=== PATIENT | male | born 1945 | race Caucasian/White ===

== ENCOUNTER → 2017-11-10 12:37 | Outpatient (CLI) | payer OTHER, SELFPAY ==
[2017-11-10 13:50] LABS: Add Manual Diff / Slide Review NO; Basophils Percent Auto 1.4 % (0-2); Eosinophils Percent Auto 3.8 % (2-4); Hematocrit 44.9 % (41-53); Lymphocytes Percent Auto 29.1 % (25-40); Mean Corpuscular HGB Conc 33.5 % (30-36); Mean Corpuscular Hemoglobin 32.4 PG (26-34); Mean Corpuscular Volume 96.6 fL (80-100); Monocytes Percent Auto 10.4 % (3-14); Neutrophils Absolute Auto 3300 /uL (3000-5900); Neutrophils Percent Auto 55.3 % (50-75); Platelet Count 291 X10^3/uL (150-400); Red Blood Cell Count 4.65 X10^6/uL (4.5-5.9); Red Cell Distribution Width 13.3 % (11.6-14.8)
[2017-11-10 14:00] LABS: Alanine Aminotransferase 38 IU/L (21-72); Albumin 4.2 g/dL (3.5-5.0); Albumin Globulin Ratio 1.3 (1.0-2.8); Alkaline Phosphatase 73 U/L (38-126); Aspartate Aminotransferase 23 IU/L (17-59); BUN Creatinine Ratio 12.5 (6-22); Bilirubin Total 0.5 mg/dL (0.2-1.3); Estimated Glomerular Filt Rate > 60.0 mL/min (>60); Globulin 3.3 g/dL (1.7-4.1); Glucose 87 mg/dL (80-110); HEMOLYSIS 22 (0-50); HEMOLYSIS < 15 (0-50); Iron 82 ug/dL (49-181); Sodium 143 mmol/L (137-145); Total Protein 7.5 g/dL (6.3-8.2)
[2017-11-10 14:11] LABS: Percent Iron Saturation 35 % (20-50); Total Iron Binding Capacity 231 ug/mL (261-462); Transferrin 167 mg/dL (206-381)
[2017-11-10 14:34] LABS: Erythrocyte Sedimentation Rate 4 MM/HR (0-15)
== END ==
PROVIDERS: PCP Family Medicine; Visit Provider Family Medicine
DX: R51 Headache (principal)
CPT/HCPCS: 36415; 80053; 83540; 83550; 85025; 85651

== ENCOUNTER → 2017-12-24 09:50 | Outpatient (CLI) | payer OTHER, SELFPAY ==
--- NOTE | 2017-12-24 09:52 | DI.MRI.S_ITS ---
PROCEDURE: MR HEAD/BRAIN WO CON INDICATIONS: MIGRAINE TECHNIQUE: Non-contrast axial T1 spin echo, axial T2 fast spin echo, sagittal and axial FLAIR, coronal T2 fast spin echo, axial gradient echo, axial diffusion and ADC through the brain. COMPARISON: None. FINDINGS: Image quality: Excellent. CSF spaces: Ventricles appear symmetric in size and shape. Basal cisterns are patent. No extra-axial fluid collections. Brain: No intracranial bleeds or mass effects. There is cerebral volume loss for age. There are periventricular and deep white matter chronic small vessel ischemic changes. Brainstem appears normal. Diffusion-weighted images show no acute ischemic insults. No chronic ischemic insults. Normal intravascular flow voids are present. Skull and face: Calvarial bone marrow is normal in signal. Orbits are normal. Sinuses: Sinuses and mastoids are clear. IMPRESSION: 1. No acute intracranial process. 2. Mild atrophy and chronic microvascular ischemic changes. Dictated by: Kristen Rodarte M.D. on 12/24/2017 at 12:17 Approved by: Kristen Rodarte M.D. on 12/24/2017 at 13:26
== END ==
PROVIDERS: Family Provider Family Medicine; PCP Family Medicine; Visit Provider Specialist
DX: G43.909 Migraine, unspecified, not intractable, without status migrainosus (principal)
CPT/HCPCS: 70551

== ENCOUNTER → 2018-01-12 14:52 | Outpatient (CLI) | payer OTHER, SELFPAY ==
--- NOTE | 2018-01-12 14:57 | DI.MRI.S_ITS ---
PROCEDURE: MR LUMBAR SPINE WO CON INDICATIONS: Chronic low back pain, bilateral hip pain status post fusion TECHNIQUE: Noncontrast sagittal T1 spin echo and T2 fast echo, sagittal STIR, axial T1 and T2 fast spin echo through the lumbar spine. In cases with scoliosis, additional coronal T2 fast spin echo may be performed. COMPARISON: [facility], , L-SPINE WITHOUT CONTRAST, 10/05/2012, 12:19. FINDINGS: Image quality: Excellent. Alignment and Curvature: Patient is status post posterior fusion and discectomy from L2-S1. No spondylolisthesis. Bone Marrow: Marrow is of normal overall signal. No acute vertebral body compression fractures. Spinal Cord: Conus medullaris terminates at the T12 level. Visualized cord demonstrates normal signal and size. Paraspinous Soft Tissues: No paravertebral masses. L1-L2: Moderate disc desiccation and height loss. Broad-based disc bulge. Mild facet ligamentum flavum hypertrophy. Mild canal stenosis. Mild bilateral neural foraminal stenosis. Degenerative disc disease is increased in extent when compared with the study dated . L2-L3: Postoperative changes. No canal stenosis. Mild bilateral foraminal narrowing. L3-L4: Postoperative changes. Moderate facet hypertrophy. No canal stenosis. Mild left foraminal narrowing. Probably moderate to severe right foraminal narrowing which is difficult to characterize given metallic artifact. L4-L5: Postoperative change. There is moderate epidural lipomatosis which narrows the bilateral lateral recesses. No AP canal stenosis. Moderate right and moderate to severe left foraminal narrowing which is difficult to characterize given metallic artifact. L5-S1: Postoperative change. Epidural lipomatosis with moderate canal stenosis. Mild right and moderate left foraminal narrowing difficult to characterize given metallic artifact. IMPRESSION: 1. Limited study given extensive metallic artifact and postsurgical change. 2. Moderate foraminal stenosis at L3-4 and L4-5, severe left foraminal narrowing at L4-5 and moderate left foraminal narrowing at L5-S1. 3. Epidural lipomatosis at L4-5 and L5-S1 with resultant narrowing of the lateral recesses L4-5 and moderate canal stenosis at L5-S1. Dictated by: Patsy Mojica M.D. on 01/12/2018 at 16:45 Approved by: Patsy Mojica M.D. on 01/12/2018 at 16:51
--- NOTE | 2018-01-12 15:12 | DI.RAD.S_ITS ---
PROCEDURE: XR LUMBAR SPINE MIN 4V INDICATIONS: Chronic low back pain status post fusion TECHNIQUE: 5 views of the lumbar spine were acquired. COMPARISON: [facility] ALFRED Blas, SPINE LUMB 2 OR 3VW, 05/06/2016, 11:02. FINDINGS: Bones: 5 nonrib-bearing vertebrae are present. Multilevel degenerative disc disease with postoperative changes L2-S1. Hardware appears intact. No acute fracture or interval change. Soft tissues: Overlying bowel gas pattern is normal. No suspicious soft tissue calcifications. Oblique images: No pars defects. IMPRESSION: Postoperative changes, no acute abnormality Dictated by: Bob Cruz M.D. on 01/12/2018 at 16:31 Approved by: Bob Cruz M.D. on 01/12/2018 at 16:35
== END ==
PROVIDERS: Family Provider Family Medicine; PCP Family Medicine; Visit Provider Physical Medicine & Rehabilitation
DX: M48.061 Spinal stenosis, lumbar region without neurogenic claudication (principal); M48.07 Spinal stenosis, lumbosacral region; M54.5 Low back pain; G89.29 Other chronic pain; M25.552 Pain in left hip; M25.551 Pain in right hip; Z98.1 Arthrodesis status
CPT/HCPCS: 72110; 72148

== ENCOUNTER 2018-02-08 13:54 | Outpatient (CLI) | payer OTHER, SELFPAY ==
--- NOTE | 2018-02-08 13:55 | DI.RAD.S_ITS ---
PROCEDURE: PAIN SI JOINT INJECTION INDICATIONS: SACROCOCCYGEAL DISORDER FINDINGS: Fluoroscopic spot filming was performed to verify placement of spinal needles at the inferior left and right sacroiliac joint level(s), as labeled on the films. Appropriate location(s) of the needle tip(s) was confirmed by injection of iodinated contrast. IMPRESSION: Successful needle tip localization into the inferior bilateral sacroiliac joints for steroid injection. Dictated by: Kiet Caraballo M.D. on 02/08/2018 at 16:23 Approved by: Kiet Caraballo M.D. on 02/08/2018 at 16:24
[2018-02-08 14:18] VITALS: BP 117/70; PULSE 95; RESP 20; TEMP 36.3; O2SAT 95
[2018-02-08 14:52] VITALS: BP 115/76; PULSE 84; RESP 18; O2SAT 97
[2018-02-08 14:58] VITALS: BP 118/57; PULSE 83; RESP 18; O2SAT 97
[2018-02-08] MEDS: BETAMETHASONE 30 MG/5 ML MDV 12 MG INJ (15:02)
[2018-02-08] MEDS: IOPAMIDOL 15 ML VIAL 3 ML INJ (15:02)
[2018-02-08] MEDS: BUPIVACAINE 0.5% (PF) VIAL 5 ML INJ (15:02)
[2018-02-08 15:05] VITALS: BP 124/73; PULSE 85; RESP 18; O2SAT 97
[2018-02-08 15:13] VITALS: BP 121/69; PULSE 86; RESP 20; O2SAT 99
--- NOTE | 2018-02-08 15:38 | P.PCN_ITS ---
Procedures Date/Time Date of procedure: 02/08/18 Time of procedure: 15:33 General Procedure description: PREOP Dx: Sacroiliac joint pain/DJD POST OP DX: Sacroiliac Joint Pain/DJD Procedures: Fluoroscopic guided contrast controlled bilateral sacroiliac joint injection Physician: Duane Mullen D.O. Indications: Augie is referred by for treatment of bilateral sacroiliac joint DJD Description of procedure Fluoroscopic guided, contrast controlled bilateral sacroiliac joint injections Following denial of allergies and review of potential side effects and complications, including, but not necessarily limited to, infection, allergic reaction, local tissue breakdown, temporary as well as permanent nerve injury, paralysis, stroke and possible , the patient indicated that they understood and agreed to proceed. An informed consent was signed by the patient , witnessed by a nurse, and placed in the patient's chart. Additionally, other treatment options including modalities, medications, and physical therapy were reviewed with the patient. After review of previous anaesthesic history and IV conscious sedation the patient was deemed safe to proceed with todays procedure with IV conscious sedation as ASA class II designation. Safety time-out was performed to confirm patient ID, procedure to be performed and site of procedure. IV sedation was deemed not needed by the RN after DO, the patient remained responsive to all verbal commands In the prone position following sterile prep and drape of the pelvic region, the hyper lucency on in the inferior aspect of the sacroiliac joint was identified fluoroscopically the skin was anesthetized be a 25 gauge 1 eventual with approximately 2 cc of 1% lidocaine solution. At this point, a 22 gauge 3 in spinal needle was atraumatically introduced and advanced under fluoroscopic guidance into the inferior aspect of the right sacroiliac joint. Following negative aspiration, approximately 0.3 cc of Isovue-300 was injected confirming intra-articular placement without vascular uptake. Radiographic data, including multiple fluoroscopic views of the pelvis, reveals a spinal needle in the sacroiliac joint hyper loosen zone. Subsequent view show flow contrast tear superiorly and inferiorly within the joint capsule without vascular intrathecal uptake. At this point a total of 1 cc or 0 8 of 0.5% Marcaine was combined with 1 cc of 6 mg of betamethasone was injected without incident. The procedure tolerated the procedure well without signs or symptoms of complications prior to transfer to the recovery area continued monitoring without incident. The patient was then transferred to the recovery area with a bur observed for an appropriate time after the injection. The patient reverted a vas score of 7 prior to the procedure and post procedure vas of 1. Total fluoroscopy time: 22.7 sec Total conscious sedation time: 24 min Postop instructions The patient was provided with a pain like to continue to record the patient's response to the target specific procedure prior to the patient's follow-up visit with the referring physician. Additionally, specific post injection care instructions and a contact number to our office were provided if concerns arise regarding the possible complications associated with procedure are suspected. Duane Mullen D.O.
== END 2018-02-08 15:22 ==
LOC: RAD 13:55
PROVIDERS: Family Provider Family Medicine; PCP Family Medicine; Visit Provider Physical Medicine & Rehabilitation
DX: M47.898 Other spondylosis, sacral and sacrococcygeal region (principal); M53.3 Sacrococcygeal disorders, not elsewhere classified
CPT/HCPCS: 27096; J0702; J2250

== ENCOUNTER → 2018-04-06 14:17 | Outpatient (CLI) | payer OTHER, SELFPAY ==
--- NOTE | 2018-04-06 14:23 | DI.MRI.S_ITS ---
PROCEDURE: MR CERVICAL SPINE WO CON INDICATIONS: Cervical spondylosis with cervicogenic headaches TECHNIQUE: Noncontrast sagittal T1 spin echo and T2 fast spin echo, sagittal STIR, foraminal oblique sagittal T2 fast spin echo, and axial gradient echo or T2 fast spin echo through the cervical spine. COMPARISON: None. FINDINGS: Image quality: Excellent. Alignment and Curvature: Trace retrolisthesis of C3 on C4 and trace anterolisthesis of C4 on C5 Bone Marrow: Marrow demonstrates normal overall signal. Spinal Cord: Visualized spinal cord has normal size and signal. No cerebellar tonsillar herniation. Paraspinous Soft Tissues: No paravertebral masses. Prevertebral soft tissues are normal in thickness. C2-C3: Normal appearance. C3-C4: Bilateral uncovertebral arthropathy and posterior intervening disc osteophyte complex, and bilateral facet disease. Mild canal narrowing partial effacement of the anterior posterior thecal sac. Mild right foraminal stenosis. [id number] left foraminal narrowing C4-C5: Bilateral uncovertebral arthropathy and posterior intervening disc osteophyte complex, and bilateral facet disease left greater than right. Mild canal narrowing with effacement of the anterior thecal sac. Severe bilateral foraminal narrowing. C5-C6: Bilateral uncovertebral arthropathy and posterior intervening disc osteophyte complex, and bilateral facet arthropathy. Mild canal narrowing. Mild left and moderate to severe right foraminal stenosis. C6-C7: Uncovertebral and bilateral facet arthropathy. Minimal canal narrowing with partial effacement of the anterior thecal sac. Moderate right foraminal narrowing. Mild left foraminal stenosis. C7-T1: No canal or foraminal stenoses. IMPRESSION: Multilevel cervical disc degeneration with mild canal narrowing at C3-C4, C4-C5 and C5-C6. Diffuse bilateral foraminal stenoses as detailed above most severe at C4-C5 (bilateral), C5-C6 (right), and C6-C7 (right). Dictated by: Aris Alfaro M.D. on 04/06/2018 at 15:37 Approved by: Aris Alfaro M.D. on 04/06/2018 at 15:45
--- NOTE | 2018-04-06 14:23 | DI.RAD.S_ITS ---
PROCEDURE: XR CERVICAL SPINE 4V OR 5V INDICATIONS: Cervical spondylosis with cervicogenic headaches TECHNIQUE: 5 views of the cervical spine acquired. COMPARISON: None. FINDINGS: Bones: No fractures or dislocations to the C7 level. Multilevel endplate sclerosis and spurring. There is moderate narrowing of the C4-C5 and C5-C6 disc spaces. Mild narrowing of the C3-C4 and 6 C7 disc spaces. Diffuse facet arthropathy. On the right, there is severe at C4-C5 and C5-C6 bony foraminal stenosis. Mild to moderate C6-C7 foraminal narrowing. On the left, no definite bony foraminal narrowing Soft tissues: No prevertebral soft tissue swelling. IMPRESSION: Multilevel cervical disc degeneration, and facet arthropathy. Numerous right-sided bony foraminal stenoses as outlined above. Dictated by: Aris Alfaro M.D. on 04/06/2018 at 16:09 Approved by: Aris Alfaro M.D. on 04/06/2018 at 16:12
== END ==
PROVIDERS: Family Provider Family Medicine; PCP Family Medicine; Visit Provider Physical Medicine & Rehabilitation
DX: R51 Headache (principal); M47.812 Spondylosis without myelopathy or radiculopathy, cervical region
CPT/HCPCS: 72050; 72141

== ENCOUNTER 2018-05-31 08:49 | Outpatient (CLI) | payer OTHER, SELFPAY ==
[2018-05-31] VITALS (8 sets, daily range): BP systolic 110–138; BP diastolic 47–95; PULSE 87–93; RESP 16–22; TEMP 36.1; O2SAT 95–99
--- NOTE | 2018-05-31 08:50 | DI.RAD.S_ITS ---
PROCEDURE: PAIN C/T INTERLAMINAR INJECT INDICATIONS: SPINAL STENOSIS FINDINGS: Fluoroscopic spot filming was performed to verify placement of spinal needles at the C6-C7 level(s), as labeled on the films. Appropriate location(s) of the needle tip(s) was confirmed by injection of iodinated contrast. Dictated by: Aris Alfaro M.D. on 05/31/2018 at 14:09 Approved by: Aris Alfaro M.D. on 05/31/2018 at 14:09
[2018-05-31] MEDS: MIDAZOLAM 5 MG/5 ML VIAL IV (09:25)
[2018-05-31] MEDS: LIDOCAINE 1% 20 ML INJ 5 ML INJ (09:48)
[2018-05-31] MEDS: DEXAMETHASONE 10 MG/ML VIAL 30 MG INJ (09:48)
[2018-05-31] MEDS: IOPAMIDOL 15 ML VIAL 3 ML INJ (09:48)
--- NOTE | 2018-05-31 09:51 | PC.NURSE ---
finished procedure and assisted pt off table with 2 person assist. pt awake and alert. transported via wheelchair for continued monitoring with Margarette DIALLO.
--- NOTE | 2018-05-31 09:54 | PM.PROC.1 ---
Procedures Date/Time Date of procedure: 05/31/18 Time of procedure: 09:54 General Procedure description: PREOP DIAGNOSIS 1. CERVICAL STENOSIS, 2. CERVICAL HNP WITH UPPER EXTREMITY RADICULAR FEATURES, POST OP DIAGNOSIS 1. CERVICAL STENOSIS, 2. CERVICAL HNP WITH UPPER EXTREMITY RADICULAR FEATURES, PROCEDURES 1. FLUORSCOPICALLY GUIDED CONTRAST CONTROLLED INTERLAMINAR EPIDURAL STEROID INJECTION - C6/7 TL MAGDA PHYSICIAN: Duane Mullen, DO INDICATIONS Augie is referred by Dr. Rios for treatment of Cervical HNP with Upper Extremity Paresthesias. FINDINGS Cervical Stenosis due to disc deterioration and nerve root irritation and nerve root irritation DESCRIPTION OF PROCEDURE Fluoroscopically guided, contrast-controlled C6/7 translaminar epidural steroid injection with conscious sedation. Following denial of allergy and review of potential side effects and complications, including, but not necessarily limited to, infection, allergic reaction, local tissue breakdown, temporary as well as permanent nerve injury, stroke, paralysis, and possible , the patient indicated that patient understood and agreed to proceed. An informed consent document was signed by the patient, witnessed by a nurse, and placed in the patient's chart. Additionally, other treatment options including modalities, medications, and physical therapy were reviewed with the patient. After review of previous anaesthesic history and IV conscious sedation the patient was deemed safe to proceed with todays procedure with IV conscious sedation as ASA class II designation. Safety time-out was performed to confirm patient ID, procedure to be performed and site of procedure. IV sedation was accomplished with a combination of 4mg of Versed administered by the RN after DO order, titrated to patient comfort during the course of the procedure while the patient remained responsive to all verbal commands. In the prone position, following sterile prep and drape of the cervical region, the C6/7 translaminar space was identified fluoroscopically. The skin was anesthetized via a 25-gauge 1.5-inch needle with 1% lidocaine solution. At this point, a 25-gauge, 2.5-inch short bevel spinal needle was atraumatically introduced and advanced under fluoroscopic guidance into epidural space at the C6/7 translaminar space. Depth was confirmed on lateral view. Radiological data, including multiple fluoroscopic views of the cervical spine, reveal a spinal needle at the C6/7 translaminar space. Lateral views then show placement of the needle in the epidural space. Subsequent views show contrast material flowing superiorly and inferiorly in the epidural space. DSA fluoroscopy with live contrast injection, once again, confirmed no vascular or intrathecal uptake. At this point, using loss of resistance technique with saline and air, the epidural space was entered. Following negative aspiration, injection of approximately 1.5 cc of Isovue-200 with live fluoroscopy in the AP view confirmed epidural flow in the epidural space without vascular or intrathecal uptake observed. Subsequently, a test dose of 1 cc of 1% lidocaine solution was injected and patient was observed for two minutes without signs or symptoms of complications, including abdominal pain, shortness of breath, bilateral upper or lower extremity weakness, nausea and vomiting, prior to steroid injection. At this point, 3 cc or 30 mg of dexamethasone was then injected without incident. The patient tolerated the procedure well without signs or symptoms of complications prior to being transferred to the recovery area for further monitoring, The patient was then transferred to the recovery area where they were observed for an appropriate period of time after the injection. The patient reported a VAS score of 6 prior to the procedure and a post-procedure VAS of 0. Total Fluoroscopy Time: 37.0 seconds Total Conscious Time: 24min POST OP INSTRUCTIONS The patient was provided a Pain Log to continue to record their response to the target-specific procedure prior to follow-up visit with the referring provider. Additionally, specific post-injection care instructions and a contact number to our office were provided if concerns arise regarding possible complications associated with the procedure are suspected. Duane Mullen, Complications: none
--- NOTE | 2018-05-31 10:06 | PC.NURSE ---
ACCEPTED PT CARE IN POST PROC AREA. PT IN STABLE CONDITION
--- NOTE | 2018-06-01 17:16 | PC.NURSE ---
Follow up call post one day injection. He reported a bad headache last night, took some immitrex and excedrin for the pain. He says that today is much better. He thought maybe it was a SE of the Versed we gave him but I explained it was probably more likely the procedure he had and he could take some of his clonazepam or some benadryl tonight to help him sleep.
== END 2018-05-31 10:32 | disposition home or self-care (01) ==
LOC: RAD 08:50
PROVIDERS: PCP Family Medicine; Visit Provider Physical Medicine & Rehabilitation
DX: M48.02 Spinal stenosis, cervical region (principal); M50.123 Cervical disc disorder at C6-C7 level with radiculopathy; M47.22 Other spondylosis with radiculopathy, cervical region
CPT/HCPCS: 62321; 99152; J1100; J2250

== ENCOUNTER → 2018-09-02 15:57 | Outpatient (CLI) | payer OTHER, SELFPAY ==
--- NOTE | 2018-09-02 | DI.MRI.S_ITS ---
PROCEDURE: MR THORACIC SPINE WO CON INDICATIONS: Radiculopthy thoracic region TECHNIQUE: Noncontrast sagittal T1 spine echo and T2 fast spin echo, sagittal STIR, axial T1 and T2 fast spin echo through the thoracic spine. COMPARISON: None. FINDINGS: Image quality: Excellent. Alignment and Curvature: There is normal bony alignment. There is approximately 12? of convex left upper thoracic spine curvature. Bone Marrow: Marrow is of normal overall signal. No acute vertebral body compression fractures. Spinal Cord: Visualized spinal cord is normal in size and signal. Paraspinous Soft Tissues: No paravertebral masses. 1.3 cm cyst noted in the posterior-inferior right hepatic lobe. Possible 1 cm nodule noted in the left lower lobe (series 10, image 28; series 5, image 13). Miscellaneous: Mild multilevel degenerative changes are noted. On axial images, central canal and foramina appear widely patent at all scanned levels. IMPRESSION: 1. Mild multilevel degenerative disease. 2. No central stenosis. 3. No neural foraminal narrowing. 4. No neural impingement. 5. Possible 1 cm right lower lobe lung nodule. Recommend dedicated CT scan of the chest for further evaluation. 6. Upper thoracic spine 12? convex left scoliosis centered at T3. Dictated by: Kaylen Belle MD, PhD on 09/05/2018 at 8:42 Approved by: Kaylen Belle MD, PhD on 09/05/2018 at 8:50
== END ==
PROVIDERS: PCP Family Medicine; Visit Provider Physical Medicine & Rehabilitation
DX: M51.14 Intervertebral disc disorders with radiculopathy, thoracic region (principal); M41.84 Other forms of scoliosis, thoracic region
CPT/HCPCS: 72146

== ENCOUNTER → 2018-09-07 16:45 | Outpatient (REF) | payer OTHER, SELFPAY | LOC: LAB 16:45 | PROVIDERS: PCP Family Medicine; Visit Provider Orthopaedic Surgery | DX: M25.562 Pain in left knee (principal) | CPT/HCPCS: 87070; 87075; 87205 ==

== ENCOUNTER → 2018-11-19 14:35 | Outpatient (CLI) | payer OTHER, SELFPAY ==
--- NOTE | 2018-11-19 | DI.MRI.S_ITS ---
PROCEDURE: MR SHOULDER LT WO CON INDICATIONS: LEFT SHOULDER DISORDER OF SYNOVIUM TECHNIQUE: Noncontrast oblique coronal T2 fast spin echo with fat saturation, oblique sagittal T1 spin echo and T2 fast spin echo with fat saturation, axial T1 spin echo and T2 fast spin echo with fat saturation through the shoulder. COMPARISON: None. FINDINGS: Image quality: Excellent. Rotator cuff: Supraspinatus tendinopathy is present. There is slitlike possible full-thickness tear at the footprint, for example image 10 series 8. There is also low-grade bursal surface fraying of the critical zone. Infraspinatus prominent interstitial tearing is noted at the musculotendinous junction for example images 13-15 series 10. Teres minor appears intact. Subscapularis tendon grossly intact. No definite atrophy of the rotator cuff musculature although there is diffuse fatty infiltration of the supraspinatus and infraspinatus muscles. Bones and bursae: No bone marrow contusions or fractures. Moderate acromioclavicular joint degeneration. The acromion demonstrates conventional anatomy, without an os acromiale. Mild amount of subacromial/subdeltoid bursal fluid is present. Capsule and soft tissues: Superior labrum appears grossly intact. Ill-defined chronic tear of the posterior labrum with associated degenerative changes in the glenoid rim image 8 series 9.No definite posterior subluxation of the humeral head relative to the glenoid. Incidental sub-labral foramen noted. The long head of the biceps tendon demonstrates normal location and morphology. The rotator interval appears normal, without fibrosis. The coracohumeral ligament is normal in thickness. IMPRESSION: Supraspinatus tendinopathy with slitlike full-thickness tear the footprint. Additional low-grade bursal surface fraying of the critical zone. Prominent infraspinatus interstitial tearing at the muscular tendinous junction. Mild subacromial/subdeltoid bursitis. Chronic tear of the posterior labrum without definite posterior subluxation of the humeral head relative to the glenoid. Dictated by: Aris Alfaro M.D. on 11/21/2018 at 9:01 Approved by: Aris Alfaro M.D. on 11/21/2018 at 9:09
== END ==
PROVIDERS: PCP Family Medicine; Visit Provider Orthopaedic Surgery
DX: M75.111 Incomplete rotator cuff tear or rupture of right shoulder, not specified as traumatic (principal); M67.912 Unspecified disorder of synovium and tendon, left shoulder; S43.492A Other sprain of left shoulder joint, initial encounter; M75.52 Bursitis of left shoulder
CPT/HCPCS: 73221

== ENCOUNTER 2019-01-06 10:26 | Emergency (ER) | payer OTHER, SELFPAY ==
[2019-01-06 10:38] VITALS: BP 168/78; PULSE 96; RESP 14; TEMP 36.7; O2SAT 97
--- NOTE | 2019-01-06 10:44 | PC.NURSE ---
CSM fully intact. Denies bowel / bladder changes. Walking w/ walker.
--- NOTE | 2019-01-06 11:43 | DI.RAD.S_ITS ---
PROCEDURE: XR SACRUM COCCYX MIN 2V INDICATIONS: pain sp glf TECHNIQUE: 3 views of the sacrum and coccyx acquired. COMPARISON: None. FINDINGS: Bones: Post-fusion changes in visualized lower lumbar spine are seen. No fractures or dislocations. No suspicious bony lesions. Soft tissues: Visualized bowel gas pattern is normal. No suspicious soft tissue densities. IMPRESSION: No gross acute sacral or coccygeal fracture. Dictated by: Ant Taylor M.D. on 01/06/2019 at 12:26 Approved by: Ant Taylor M.D. on 01/06/2019 at 12:26
--- NOTE | 2019-01-06 11:43 | DI.RAD.S_ITS ---
PROCEDURE: XR HIP W PEL IF DONE RT 2V INDICATIONS: glf pain TECHNIQUE: AP pelvis with lateral view(s) of the right hip(s). COMPARISON: None. FINDINGS: Bones: No fractures or dislocations. Pelvic ring appears intact. Mild to moderate bilateral hip joint osteoarthritic changes are noted. No evidence of avascular necrosis of femoral heads. No suspicious bony lesions. Post-fusion changes in lower lumbar spine at L4-S1 levels are seen. Soft tissues: The visualized bowel gas pattern is normal. No suspicious soft tissue calcifications. IMPRESSION: No gross acute right hip fracture or dislocation. Mild to moderate bilateral hip joint osteoarthritis. Dictated by: Ant Taylor M.D. on 01/06/2019 at 12:24 Approved by: Ant Taylor M.D. on 01/06/2019 at 12:26
[2019-01-06] MEDS: HYDROCODONE/ACET 5/325 TABLET 1 TAB PO (12:08)
[2019-01-06] MEDS: LIDOCAINE PATCH 1 EACH ADH..PATCH TOP (12:08)
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
[2019-01-06 12:27] LABS: Bacteria Urine None Seen
[2019-01-06 12:59] LABS: Culture Indicated Urine Cult Not Indicated; RBC Urine 1-5/HPF (0-5/HPF); WBC Urine 0-1/HPF (0-5/HPF)
[2019-01-06 13:14] VITALS: BP 139/79; PULSE 84; RESP 16; O2SAT 96
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
== END 2019-01-06 13:18 | disposition home or self-care (01) ==
PROVIDERS: Emergency Provider Nurse Practitioner Family; PCP Family Medicine
DX: M54.41 Lumbago with sciatica, right side (principal); W19.XXXA Unspecified fall, initial encounter
CPT/HCPCS: 72220; 73502; 81003; 81015; 99283

== ENCOUNTER → 2019-04-04 14:00 | Outpatient (CLI) | payer OTHER, SELFPAY ==
--- NOTE | 2019-04-04 14:05 | DI.CT.S_ITS ---
PROCEDURE: CT LUMBAR SPINE WO CON INDICATIONS: Postlaminectomy syndrome, not elsewhere classified TECHNIQUE: Noncontrast 3 mm thick sections acquired from the T12 level to the sacrum. Sagittal and coronal reformats were constructed. For radiation dose reduction, the following was used: automated exposure control. COMPARISON: [facility], CT, L-SPINE WITHOUT CONTRAST, 05/11/2013, 12:54. [facility], CR, XR SACRUM COCCYX MIN 2V, 01/06/2019, 11:51. [facility], CR, XR LUMBAR SPINE MIN 4V, 01/12/2018, 15:26. [facility], MR, MR LUMBAR SPINE WO CON, 01/12/2018, 15:05. FINDINGS: Image quality: Excellent. Bones: No acute vertebral body compression fractures. There is mild anterior wedge deformity seen involving L2 and L3. The L2 fracture is new compared to the prior MRI dated 01/12/18. No suspicious lytic or blastic bony lesions. Central spinal caliber is of normal overall caliber. No pars defects. Mild levoconvex scoliotic curvature is noted. Postoperative changes are seen, with right-sided pedicle screws at the L2, L3, and L4 levels and left-sided screws at the L4 and L5 and S1 levels. There is lucency seen surrounding the screws, which is most prominent at the L2 and L4 levels on the right as well as at the S1 level on the left. The left-sided screw at L4 is superiorly located. The screws otherwise appear well placed. Vertical fixation rods are seen. Disc spacers are seen at L2-L3, L3-L4, L4-L5, and the L5-S1 level. No norma findings of hardware failure can be seen. There has been removal of portions of the posterior elements. T12-L1: No significant abnormality is seen L1-L2: Mild loss of disc height is seen posteriorly. Vacuum disc phenomenon is seen at this level. Mild to moderate disc bulge is seen. Moderate bilateral neural foraminal narrowing is seen, right worse than left. Mild to moderate central canal narrowing is seen. These imaging findings have progressed compared to the prior study. L2-L3: Postoperative changes are seen at this level. Posteriorly projected endplate osteophytes are seen. At least moderate disc bulge is seen. Moderate to severe neural foraminal narrowing is seen on the left and there is at least moderate neural foraminal narrowing seen on the right. Mild central canal narrowing is seen. When comparison is made with the prior examination, these findings are similar. L3-L4: Postoperative changes are seen at this level. At least moderate disc bulge is seen. There is at least moderate bilateral neural foraminal narrowing seen. No significant central canal narrowing is seen. No significant change from the prior. L4-L5: There are postoperative changes at this level. Posteriorly projected endplate osteophytes are seen. At least moderate disc bulge is seen. At least moderate bilateral neural foraminal narrowing is seen, right worse than left. No significant central canal narrowing is seen. No significant change from the prior. L5-S1: At least moderate loss of disc height is seen. Posteriorly projected endplate osteophytes are seen. Moderate disc bulge is seen at this level. There is mild right-sided and moderate left-sided neural foraminal narrowing seen. No significant central canal narrowing is seen. When comparison is made with the prior examination, these findings are similar. Soft tissues: No retroperitoneal masses or hematomas. Visualized aorta is normal in caliber. Atherosclerotic calcification is noted. Bilateral nonobstructing kidney stones are seen. The largest on the left measures 7 mm and the largest on the right measures 6 mm. IMPRESSION: Extensive postoperative changes are seen. Several screws demonstrate lucency surrounding them, which is consistent with loosening. Multiple levels of lumbar spine degenerative change are seen, which have progressed at L1-L2 compared to the prior MRI, yet otherwise are relatively similar since 2018. Interval L2 anterior wedge deformity, without norma acute features. Incidental note is made of: Bilateral nonobstructing kidney stones Dictated by: Live Mackenzie M.D. on 04/04/2019 at 16:30 Approved by: Live Mackenzie M.D. on 04/04/2019 at 16:39
--- NOTE | 2019-07-17 | DI.CT.S_ITS ---
PROCEDURE: CT LUMBAR SPINE W CON INDICATIONS: PAIN TECHNIQUE: After the intrathecal administration of 15 mL intrathecal contrast, 3 mm thick sections acquired from T12 to the sacrum. Sagittal and coronal reformats were then constructed. For radiation dose reduction, the following was used: automated exposure control. COMPARISON: [facility], MR, MR LUMBAR SPINE WO CON, 01/12/2018, 15:05. [facility], CT, CT LUMBAR SPINE WO CON, 04/04/2019, 14:03. FINDINGS: Image quality: Excellent. Bones: Posterior fusion is present from L2-S1 with intervertebral spacers. The latter extends to L5-S1. Hardware is intact without evidence of hardware fracture or periprosthetic loosening. There is right-sided fusion at L2 and L3, bilateral at L4 and left-sided at L5 and S1. There is superior end plate deformities identified at L2 and L3, unchanged. Nonbridging anterior osteophytes are present. There is good anatomic alignment with trace retrolisthesis of L1 on L2. The conus ends at L1-2. L1-L2: Mild disc bulge with superimposed right posterior paracentral protrusion/possibly extrusion. There is overall indentation anterior thecal sac and severe spinal stenosis. This is new compared to prior exam. Moderate bilateral foraminal narrowing. L2-3: Postoperative changes are present. Mild posterior disc bulge is present with mild spinal stenosis, unchanged. There is at least moderate bilateral foraminal narrowing, likely moderate to severe on the left. Foramina are difficult to visualize secondary to artifact from surgical hardware. Facet hypertrophy is present. L3-4: Postoperative changes are present. Mild disc bulge with mild spinal stenosis, progressive compared to prior exam. Moderate bilateral foraminal narrowing, right greater than left. L4-5: Postsurgical changes are present with minimal canal narrowing, unchanged. Moderate bilateral foraminal narrowing, relatively unchanged when compared to prior exam. L5-S1: Postsurgical changes are present. Moderate spinal stenosis is present, progressive compared to prior exam. Moderate left and mild right foraminal narrowing, unchanged. Miscellaneous: Nerve roots appear unremarkable throughout. No nerve root clumping to suggest arachnoiditis. Nonobstructing bilateral renal calculi are identified. IMPRESSION: 1. Stable appearance of postsurgical change. 2. Interval appearance of protrusion/possibly extrusion at L1-2 causing severe spinal stenosis as above. As clinically indicated, MRI of this region may be obtained. There appears to be compromise of the right lateral recess. 3. Multilevel spinal stenosis increased in severity at L1-L2 and L5-S1 as above. 3. Multilevel foraminal narrowing relatively stable compared to prior exam. Dictated by: Kristen Rodarte M.D. on 07/17/2019 at 14:28 Approved by: Kristen Rodarte M.D. on 07/17/2019 at 15:08
--- NOTE | 2019-07-17 | DI.CT.S_ITS ---
PROCEDURE: CT CERVIAL SPINE W CON INDICATIONS: PAIN TECHNIQUE: After the administration of 10mL intrathecal contrast, 3 mm thick sections acquired from the skull base to the T1 level. Sagittal and coronal reformats were then constructed. For radiation dose reduction, the following was used: automated exposure control, adjustment of mA and/or kV according to patient size. COMPARISON: [facility], MR, MR CERVICAL SPINE WO CON, 04/06/2018, 14:29. [facility], CR, XR CERVICAL SPINE 4V OR 5V, 04/06/2018, 14:37. FINDINGS: Image quality: Excellent. Bones and alignment: Spinal alignment is normal. No acute fractures. No suspicious bony lesions. Soft tissues: No paraspinal masses. Prevertebral soft tissues are normal in thickness. Visualized neck vasculature appears normal in size. C2-C3: Normal appearance. C3-C4: Normal appearance except for mild posterior degenerative disc disease with a slight posterior disc bulge. C4-C5: Moderate degenerative disc disease with the posterior transverse disc bulge mild in overall severity. Moderate to moderately severe facet osteoarthritis, slightly greater on the left than the right, with moderately severe left and mild to moderate right foraminal stenosis. Asymmetric left greater than right C5 nerve root impingement likely is present. C5-C6: Moderate degenerative disc disease, mild to moderate posterior disc bulge without definite distortion of the adjacent anterior cervical cord. The mild facet osteoarthritis, mild symmetric foraminal stenosis without definite nerve root impingement. C6-C7: Mild to moderate degenerative disc disease, small posterior disc bulge, very slight anterolisthesis of C6 on C7 without significant distortion of the anterior cord at this level. Facet osteoarthritis is greater on the right than the left with mild to moderate right and mild left foraminal stenosis with potential for slight impingement on the course of the C7 nerve roots, right greater than left. C7-T1: Normal appearance. Miscellaneous: Visualized intracranial structures appear unremarkable. IMPRESSION: Mild to moderate degenerative disc disease, minimal subluxation noted at C6-C7. No disc herniation or significant anterior spinal stenosis. Multilevel facet and uncovertebral osteoarthritis as detailed by level in the body of the report above with potential for individual nerve root impingement best seen at C4-C5 (left greater than right) and at C6-C7 (right greater than left). Dictated by: Kiet Caraballo M.D. on 07/17/2019 at 11:12 Approved by: Kiet Caraballo M.D. on 07/17/2019 at 11:29
--- NOTE | 2019-07-17 09:08 | DI.CT.S_ITS ---
PROCEDURE: CT THORACIC SPINE W CON INDICATIONS: SPONDYLOSIS, RADICULPATHY TECHNIQUE: After the administration of 10 mL intrathecal contrast, 3 mm thick sections acquired through the region of interest in the thoracic spine. Sagittal and coronal reformats were then constructed. For radiation dose reduction, the following was used: automated exposure control. COMPARISON: [facility], MR, MR THORACIC SPINE WO CON, 09/02/2018, 16:31. [facility], CR, XR THORACOLUMBAR SPINE 2 VIEWS, 03/01/2019, 13:32. FINDINGS: Image quality: Excellent. No visualized fractures or dislocations. Partially visualized fusion of the lumbar spine is noted. Spinal cord stimulator is noted extending to approximately T8. Multilevel degenerative disc space narrowing is present. There is no spinal stenosis within the thoracic spine. Question will minimal disc bulge is present at T3-4. In addition, foramina are patent. No suspicious osseous lesions. Visualized soft tissues within the chest abdomen and pelvis demonstrate cardiomegaly and a prominent hiatal hernia. Nonobstructing bilateral renal calcifications are present. Severe medial hepatic cyst is noted. As noted on prior MRI thoracic spine in 2019, a possible right lower lobe pulmonary nodule was identified. However, this is not visualized on current exam. IMPRESSION: 1. No visualized thoracic spinal stenosis or foraminal narrowing. Dictated by: Kristen Rodarte M.D. on 07/17/2019 at 15:54 Approved by: Kristen Rodarte M.D. on 07/17/2019 at 16:01
== END ==
PROVIDERS: PCP Family Medicine; Visit Provider Orthopaedic Surgery
DX: M96.1 Postlaminectomy syndrome, not elsewhere classified (principal); M47.816 Spondylosis without myelopathy or radiculopathy, lumbar region; N20.0 Calculus of kidney
CPT/HCPCS: 72131

== ENCOUNTER 2019-07-17 06:55 | Outpatient (CLI) | payer OTHER, SELFPAY ==
[2019-07-17] VITALS (12 sets, daily range): BP systolic 122–154; BP diastolic 66–99; PULSE 95–109; RESP 14–103; TEMP 36.4–37.3; O2SAT 93–99; BMI 30.8
--- NOTE | 2019-07-17 | DI.RAD.S_ITS ---
PROCEDURE: FL INJECT SPINE FOR CT MYELO INDICATIONS: C.T mylogram TECHNIQUE: The indications, alternatives, benefits, risks and complications of the procedure were explained to the patient. Written informed consent was obtained and placed in the chart. The patient was placed in a prone position on the fluoroscopy table, and a level was chosen for percutaneous access under fluoroscopic guidance. The skin was prepped and draped in a sterile fashion. After local anaesthetic, a spinal needle was then used to enter the intrathecal space, with return of clear cerebrospinal fluid. 15 mL of Isovue M-200 were administered intrathecally under fluoroscopic visualization. The needle was then withdrawn, and a bandage applied to the puncture site. Fluoroscopic spot films were then acquired in various positions. FINDINGS: Standing frontal, lateral, and oblique views demonstrate no significant central canal stenoses. Access level: L2-L3 interlaminar notch. Medications: 1% lidocaine for local anaesthesia. Complications: None. Patient was transferred to CT for subsequent CT myelogram. IMPRESSION: Successful fluoroscopically guided administration of iodinated contrast into the lumbar spine central canal for CT myelogram. Dictated by: Kiet Caraballo M.D. on 07/17/2019 at 12:27 Approved by: Kiet Caraballo M.D. on 07/17/2019 at 12:33
[2019-07-17 07:40] LABS: Hematocrit 44.1 % (41-53); Mean Corpuscular Hemoglobin 32.2 PG (26-34); Mean Corpuscular Volume 94.8 fL (80-100); Platelet Count 325 X10^3/uL (150-400); Red Blood Cell Count 4.65 X10^6/uL (4.5-5.9); Red Cell Distribution Width 13.3 % (11.6-14.8); White Blood Cell Count 7.1 X10^3/uL (4.5-11.0)
[2019-07-17 07:42] LABS: Prothrombin Time 11.8 SECONDS (10.1-12.7)
--- NOTE | 2019-07-17 09:49 | SUR.PHASEII ---
Patient returned from Myelogram procedure. GCS 15. Denies any numbness or tingling. Denies blurred vision or headache. Tolerated PO fluids at this time. Warm blanket provided. Call light in reach. Reminded patient of need to lie flat for post-op procedure and to increase PO fluid intake. V/U. Instructed to call for assistance.
--- NOTE | 2019-07-17 10:06 | SUR.PHASEII ---
Patient drinking juice and eating breakfast sandwich without difficulty.
--- NOTE | 2019-07-17 11:31 | SUR.PHASEII ---
Updated patient regarding 1:00 discharge time. Patient was under the impression he would be able to leave sooner than 1300. Advised patient that orders were placed for a 1300 discharge time. V/U.
--- NOTE | 2019-07-17 13:24 | SUR.PHASEII ---
Care assumed from IMANI Richardson. D/c instructions discussed with pt and his . Both voiced an understanding. Bandaid to lower back c/d/i. VS close to baseline. Pt dressed when ready and left in stable condition.
== END 2019-07-17 13:28 | disposition home or self-care (01) ==
PROVIDERS: PCP Family Medicine; Visit Provider Physician Assistant
DX: M47.26 Other spondylosis with radiculopathy, lumbar region (principal)
CPT/HCPCS: 36415; 62284; 72126; 72129; 72132; 77003; 85027; 85610

== ENCOUNTER → 2020-04-09 09:37 | Outpatient (CLI) | payer OTHER, SELFPAY ==
--- NOTE | 2020-04-09 | DI.RAD.S_ITS ---
PROCEDURE: FL SHOULDER INJECTION MR/CT RT INDICATIONS: Rotator cuff tear COMPARISON: None. TECHNIQUE: The indications, alternatives, benefits, risks, and complications of the procedure were explained to the patient. Written informed consent was obtained and placed in the chart. The shoulder was examined fluoroscopically and a site for needle placement chosen for entry into the glenohumeral joint from an anterior approach. The skin was prepped and draped in a sterile fashion, and 1% lidocaine infiltrated from skin down to joint capsule. A spinal needle was inserted into the glenohumeral joint, and a small amount of iodinated contrast media injected to confirm intra-articular placement of the needle tip. This was followed by approximately 12 mL of iodinated contrast. The needle was removed and a dressing was applied. The patient was given postprocedural instructions and sent to the CT suite for imaging. FINDINGS: A single fluoroscopic spot image demonstrates intra-articular location of injected iodinated contrast. IMPRESSION: Successful fluoroscopically guided administration of iodinated contrast solution into the shoulder joint for CT arthrogram. Dictated by: Kiet Caraballo M.D. on 04/09/2020 at 10:53 Approved by: Kiet Caraballo M.D. on 04/09/2020 at 10:53
--- NOTE | 2020-04-09 10:41 | DI.CT.S_ITS ---
PROCEDURE: CT UE RT W CON INDICATIONS: Rotator cuff tear TECHNIQUE: After the intra-articular administration of 12 mL of dilute non-ionic contrast, 1-1.5 mm thick sections acquired from the acromioclavicular joint to the inferior scapula, with coronal and sagittal reformatting. COMPARISON: None. FINDINGS: Image quality: Excellent. Bones: Moderate acromioclavicular joint and glenohumeral joint osteoarthritic changes are seen. Slight superior migration of humeral head in relation to glenoid is noted. No fracture or dislocation. No suspicious intraosseous lesion. Postsurgical changes are noted involving greater tuberosity of humeral head from prior rotator cuff tendon repair. Soft tissues: There is no contrast extension to subacromial subdeltoid bursa to suggest full-thickness rotator cuff tendon rupture. There is likely low-grade articular surface partial-thickness tear involving anterior fibers of distal supraspinatus. No significant muscle atrophy is noted on sagittal images. There is no gross intra-articular loose body. Contrast extension and contour irregularity involving superior anterior labrum is seen concerning for labral tear. IMPRESSION: 1. No full-thickness rotator cuff tendon rupture. Suggestion of low-grade articular surface partial-thickness tear involving distal supraspinatus. No significant rotator cuff muscle atrophy. 2. Suggestion of superior anterior labral tear at 12 to 2 o'clock position. 3. Moderate acromioclavicular joint and glenohumeral joint osteoarthritis. No fracture or dislocation. No suspicious bony lesion. Evidence of prior rotator cuff tendon repair. Dictated by: Ant Taylor M.D. on 04/09/2020 at 10:33 Approved by: Ant Taylor M.D. on 04/09/2020 at 10:36
== END ==
PROVIDERS: PCP Physician Assistant Medical; Referring Provider Orthopaedic Surgery; Visit Provider Orthopaedic Surgery
DX: M75.111 Incomplete rotator cuff tear or rupture of right shoulder, not specified as traumatic; M19.011 Primary osteoarthritis, right shoulder
CPT/HCPCS: 23350; 73201; 77002

== ENCOUNTER → 2020-04-19 11:10 | Outpatient (CLI) | payer OTHER, SELFPAY ==
--- NOTE | 2020-04-19 | DI.CT.S_ITS ---
PROCEDURE: CT LUMBAR SPINE WO CON INDICATIONS: Arthrodesis status TECHNIQUE: Noncontrast 3 mm thick sections acquired from the T12 level to the sacrum. Sagittal and coronal reformats were constructed. For radiation dose reduction, the following was used: automated exposure control. COMPARISON: [facility], CT, CT LUMBAR SPINE WO CON, 04/04/2019, 14:03. FINDINGS: Image quality: Excellent. Bones: There is normal bony alignment. No acute vertebral body compression fractures. No suspicious lytic or blastic bony lesions. Central spinal caliber is of normal overall caliber. No pars defects. Posterior fixation hardware spanning L2-L5 is redemonstrated. There has been interval laminectomy, posterior fixation, and intervertebral glue placement at L1 and L2 when compared with the study dated April 04, 2019. The right 3rd pedicle screw has an unchanged appearance. As before, subtle lucency surrounds the right 4th pedicle screw. The left 4th pedicle screw has an unchanged appearance. Left this pedicle screw is unremarkable. The left S1 pedicle screw demonstrates lucency as before. Superior L2 and superior and inferior L3 endplate compression deformities are redemonstrated and are unchanged. Patient is status post discectomy from L2-S1, as before. No new compression deformities. No canal stenosis. Moderate neural foraminal stenosis is present on the right from L1-L5 and on the left from L1-L4. These findings are similar in extent to the prior study. Dense atheromatous calcifications are present throughout the visualized abdominal aorta and iliac arteries. Visualized loops of bowel demonstrate normal caliber and wall thickness. The kidneys are normal in size. A 6 mm diameter nonobstructing calculus is present within the midpole of the right kidney, as before a 6 mm nonobstructing calculus is present within the upper pole of the left kidney. No hydronephrosis or hydroureter where visualized. IMPRESSION: 1. Postoperative changes at L1-L2 when compared with the study dated April 04, 2019. 2. Persistent lucency surrounds the right 4th pedicle screw and the left S1 pedicle screw suggesting hardware loosening. 3. Stable compression deformities as before. No new compression deformities of the lumbar spine. 4. No canal stenosis. 5. Moderate bilateral foraminal stenosis as above. 6. Aortic atherosclerosis and nonobstructive bilateral nephrolithiasis. Dictated by: Patsy Mojica M.D. on 04/19/2020 at 12:43 Approved by: Patsy Mojica M.D. on 04/19/2020 at 12:51
== END ==
PROVIDERS: PCP Physician Assistant Medical; Referring Provider Physician Assistant Medical; Visit Provider Physician Assistant
DX: M48.061 Spinal stenosis, lumbar region without neurogenic claudication (principal); I70.0 Atherosclerosis of aorta; N20.0 Calculus of kidney; Z98.1 Arthrodesis status
CPT/HCPCS: 72131

== ENCOUNTER → 2020-09-18 11:35 | Outpatient (CLI) | payer OTHER, SELFPAY ==
--- NOTE | 2020-09-18 11:41 | DI.CT.S_ITS ---
PROCEDURE: CT LUMBAR SPINE WO CON INDICATIONS: UNSPECIFIED FRACTURE OF LUMBAR VERTABREA TECHNIQUE: Noncontrast 3 mm thick sections acquired from the T12 level to the sacrum. Sagittal and coronal reformats were constructed. For radiation dose reduction, the following was used: automated exposure control. COMPARISON: [facility], CT, CT LUMBAR SPINE WITHOUT CONTRAST, 01/25/2020, 15:49. [facility], CR, XR LUMBAR SPINE 2 OR 3 VIEWS, 01/28/2020, 8:15. [facility], CR, XR LUMBAR SPINE 2 OR 3 VIEWS, 03/05/2020, 10:27. [facility], CT, CT LUMBAR SPINE WO CON, 04/19/2020, 12:11. FINDINGS: Image quality: Excellent. Bones: No acute vertebral body compression fractures. No suspicious lytic or blastic bony lesions. No pars defects. Postoperative changes are seen, with bilateral pedicle screws at the L1, L2, and L4 levels. There is a right-sided screw at L3. Left-sided screws are seen at L5 and S1. The screws appear well placed. There is lucency seen adjacent to the right L4 screw, as on series 6, image 26 and on series 5 image 21. Vertical fixation rods are seen. Disc spacers are seen at L2-L3, L3-L4, L4-L5, and at L5-S1. No additional findings of hardware failure or hardware loosening are seen. There has been removal of portions of the posterior elements. Bone grafting can be seen within the L1 and L2 vertebral bodies. Mild levoconvex scoliotic curvature is noted. No focal AP alignment abnormality is seen. 5 nonrib-bearing, lumbar type vertebral bodies are seen. No acute appearing fractures are seen. No suspicious lytic or blastic lesions can be seen. T12-L1: The disc height is well preserved. Minimal disc bulge is seen. No neural foraminal narrowing or central canal can be seen. L1-L2: Moderate loss of disc height is seen posteriorly. Bone cement can be seen along the disc level itself. Vacuum disc phenomenon is seen at this level. There is moderate bilateral neural foraminal narrowing seen, right worse than left. The central canal is widely patent. L2-L3: At least moderate loss of disc height is seen posteriorly. Endplate irregularity and sclerosis can be seen. At least moderate disc bulge is seen. Posteriorly projected endplate osteophytes are seen. Moderate facet joint hypertrophy is seen. Moderate bilateral neural foraminal narrowing is seen. Mild central canal narrowing is seen. L3-L4: Zvyj-tl-sijyakvw loss of disc height can be seen. At least moderate disc bulge is seen, with a central disc protrusion. Posteriorly directed endplate osteophytes are also seen. There is moderate left-sided and moderate to severe right-sided neural foraminal narrowing seen. Moderate central canal narrowing is seen. L4-L5: Moderate to severe loss of disc height is seen at this level. Endplate irregularity and sclerosis can be seen. Vacuum disc phenomenon is seen at this level. Moderate to severe bilateral neural foraminal narrowing can be seen. At least moderate central canal narrowing can be seen at this level, which is partially caused by bone fragments versus calcification along the left aspect of the thecal sac, as on series 2, image 69 and on series 3, image 69. L5-S1: At least moderate loss of disc height is seen. Macrovascular mild to moderate disc bulge is seen. There is moderate right-sided and prominent left-sided facet hypertrophy seen. There is moderate right-sided and moderate to severe left-sided neural foraminal narrowing seen. Mild to moderate central canal narrowing can be seen. Soft tissues: No retroperitoneal masses or hematomas. Visualized aorta is normal in caliber. Atherosclerotic calcification is noted. Nonobstructing bilateral renal stones are seen, which measure up to 6 mm on the right and up to 8 mm on the left. No ureteral stones or hydronephrosis can be seen. A left-sided stimulator power pack can be seen, with the leads coursing superiorly off of the field of view of this study. IMPRESSION: Extensive postoperative hardware is seen, which is similar to prior, with lucency noted adjacent to the right L4 screw, which is consistent with loosening. Multiple levels of degenerative change are seen, which are similar to 2020. Dictated by: Live Mackenzie M.D. on 09/18/2020 at 14:07 Approved by: Live Mackenzie M.D. on 09/18/2020 at 14:16
== END ==
PROVIDERS: PCP Physician Assistant Medical; Referring Provider Physician Assistant Medical; Visit Provider Physician Assistant
DX: S32.029A Unspecified fracture of second lumbar vertebra, initial encounter for closed fracture (principal); M47.816 Spondylosis without myelopathy or radiculopathy, lumbar region; M47.817 Spondylosis without myelopathy or radiculopathy, lumbosacral region; Z98.1 Arthrodesis status
CPT/HCPCS: 72131

== ENCOUNTER → 2020-10-15 10:53 | Outpatient (CLI) | payer OTHER, SELFPAY ==
--- NOTE | 2020-10-15 | DI.RAD.S_ITS ---
PROCEDURE: XR FOOT RT MIN 3V INDICATIONS: Pain in right toe(s) TECHNIQUE: 3 views of the foot were acquired. COMPARISON: None. FINDINGS: Bones: No fractures or dislocations. Quality of visualization of the toes is relatively limited by flexion at the proximal interphalangeal joints along all digits. No suspicious bony lesions. Soft tissues: No tibiotalar joint effusion. Achilles tendon appears normal. IMPRESSION: Flexion deformity noted along the proximal interphalangeal joints across the right foot. This disallows accurate assessment of the distal phalanx of each toe. Depending on the clinical status, if infection is suspected follow-up by contrast-enhanced foot MR scanning may be warranted. Dictated by: Kiet Caraballo M.D. on 10/15/2020 at 12:34 Approved by: Kiet Caraballo M.D. on 10/15/2020 at 12:36
== END ==
PROVIDERS: PCP Physician Assistant Medical; Referring Provider Physician Assistant; Visit Provider Physician Assistant
DX: M79.674 Pain in right toe(s) (principal); M25.774 Osteophyte, right foot
CPT/HCPCS: 73630

== ENCOUNTER → 2021-01-02 13:08 | Outpatient (CLI) | payer OTHER, SELFPAY ==
--- NOTE | 2021-01-02 | DI.CT.S_ITS ---
PROCEDURE: CT LE RT WO CON INDICATIONS: Pain in right foot TECHNIQUE: Noncontrast 1-1.5 mm axial sections acquired from above the tibiotalar joint to the bottom of the calcaneus, with coronal and sagittal reformats. COMPARISON: [facility], CR, XR FOOT 3 VIEWS WEIGHT BEARING RIGHT, 12/18/2020, 10:08. [facility], CR, XR ANKLE 1 OR 2 VIEWS BILATERAL, 12/18/2020, 10:13. FINDINGS: Image quality: Excellent. Bones: No acute fracture or dislocation. A small ossification adjacent to the anterior process of the calcaneus may be the sequela of prior trauma or congenital variation. No hindfoot coalition is seen. Accessory os naviculare is present. A small posterior calcaneal enthesophyte is present. There is flexion of the toes, which is nonspecific. Mild degenerative changes are seen at the 1st metatarsophalangeal joint and metatarsal sesamoid articulations as well as the interphalangeal joints of the toes. Soft tissues: The intrinsic foot musculature is normal in bulk. There is mild soft tissue edema surrounding the ankle. The articular cartilages, ligaments, and tendons are not well evaluated with CT. IMPRESSION: 1. No acute osseous abnormality. No hindfoot coalition. 2. Flexion of the interphalangeal joints of the toes, which is nonspecific but may be related to positioning or hammertoe deformities. Mild scattered degenerative changes in the interphalangeal joints of the toes in the 1st metatarsophalangeal joint. 3. Mild nonspecific soft tissue edema surrounding the ankle. Dictated by: Winston Chen M.D. on 01/02/2021 at 17:12 Approved by: Winston Chen M.D. on 01/02/2021 at 17:18
== END ==
PROVIDERS: PCP Physician Assistant Medical; Referring Provider Orthopaedic Surgery Foot and Ankle Surgery; Visit Provider Orthopaedic Surgery Foot and Ankle Surgery
DX: M79.671 Pain in right foot (principal); M25.471 Effusion, right ankle
CPT/HCPCS: 73700

== ENCOUNTER → 2021-01-22 12:14 | Outpatient (CLI) | payer OTHER, SELFPAY ==
--- NOTE | 2021-01-22 12:18 | DI.CT.S_ITS ---
PROCEDURE: CT PEL WO CON INDICATIONS: Age-related osteoporosis Sacroiliitis TECHNIQUE: Noncontrast 3 mm axial sections acquired through the bony pelvis, with coronal and sagittal reformatting. COMPARISON: [facility], CR, XR HIP W PEL IF DONE LOKESH 3TO4V, 01/22/2021, 12:22. [facility], CT, CT LE RT WO CON, 01/02/2021, 13:16. [facility], CT, CT LUMBAR SPINE WO CON, 09/18/2020, 11:39. [facility], CT, CT LUMBAR SPINE WO CON, 04/19/2020, 12:11. [facility], CR, XR LUMBAR SPINE 2 OR 3 VIEWS, 01/25/2020, 10:48. [facility], RF, LUMBAR SPINE INTERIAMINAR, 11/27/2019, 9:32. FINDINGS: Image quality: Excellent. Bones: The imaging begins to include the upper L4 vertebral body and extends inferiorly through the proximal femurs. There is partial visualization of prior fixation devices documented on previous CT and plain film imaging. No evidence of device loosening or disruption. A presumed pain control device overlies the buttocks region paramedian on the left. This had obscured clear visualization of the left hip on plain film imaging same day. The hip joints on CT scanning are well visualized in show a mild joint space narrowing pattern symmetric bilaterally as has previously the case before pain control device placement. There is no sign of sacroiliitis/ankylosis over the sacroiliac joints bilaterally. Minimal degenerative changes seen at the inferior sacroiliac joints. This has not changed from prior CT scanning. Soft tissues: No abnormality found that would indicate hematoma, infection or neoplasm. 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 New pain control device overlies the left paramedian buttock area. No sign of soft tissue abnormality Dictated by: Kiet Caraballo M.D. on 01/22/2021 at 13:00 Approved by: Kiet Caraballo M.D. on 01/22/2021 at 13:03
--- NOTE | 2021-01-22 12:19 | DI.RAD.S_ITS ---
PROCEDURE: XR HIP W PEL IF DONE LOKESH MIN 4V INDICATIONS: Sacroiliitis TECHNIQUE: AP pelvis with lateral view(s) of the bilateral hip(s). COMPARISON: [facility], , XR HIP W PEL IF DONE RT 2V, 01/06/2019, 11:49. FINDINGS: Bones: No fractures or dislocations. Pelvic ring appears intact. No suspicious bony lesions. Mild hip joint osteoarthritis is present and on the right, and the left hip on both frontal and lateral views is obscured by a presumed pain control electronic device. Soft tissues: The visualized bowel gas pattern is normal. No suspicious soft tissue calcifications. IMPRESSION: Mild right hip joint space narrowing, present also 01/06/19. Left hip assessment is very limited due to overlapping of a pain control device across much of the articular margin of the left hip. No definite trauma found bilaterally. Dictated by: Kiet Caraballo M.D. on 01/22/2021 at 12:54 Approved by: Kiet Caraballo M.D. on 01/22/2021 at 12:55
== END ==
PROVIDERS: PCP Physician Assistant Medical; Referring Provider Neurological Surgery; Visit Provider Neurological Surgery
DX: Z13.820 Encounter for screening for osteoporosis (principal); M85.851 Other specified disorders of bone density and structure, right thigh; M46.1 Sacroiliitis, not elsewhere classified; M16.0 Bilateral primary osteoarthritis of hip
CPT/HCPCS: 72192; 73522; 77080; 77081

== ENCOUNTER → 2021-09-26 11:23 | Outpatient (CLI) | payer OTHER, SELFPAY ==
[2021-09-26 12:26] LABS: COVID19 -Nasal RAPID Negative (Negative)
== END ==
PROVIDERS: PCP Physician Assistant Medical; Visit Provider Family Medicine Sleep Medicine
DX: Z20.822 Contact with and (suspected) exposure to COVID-19 (principal)
CPT/HCPCS: 87635; C9803

== ENCOUNTER 2021-09-29 08:24 | Day surgery (SDC) | payer OTHER, SELFPAY ==
--- NOTE | 2021-09-29 | PATH_ITS ---
[facility] Accession Number: [id number] No. of containers..01 Tissue . 01 Material submitted: . gastrointestinal site - ANTRUM . 02 Diagnosis: Antrum, Biopsy: Gastric antral mucosa with no diagnostic abnormality. No evidence of Helicobacter organisms on H/E stain. Negative for intestinal metaplasia. Negative for dysplasia and malignancy. MRV 09/30/2021 1359 Local . 02 Electronically signed: . Jozef Mendoza MD, PhD, Pathologist NPI- [id number] . 01 Gross description: . ANTRUM: Received in formalin is 1 fragment(s) of baez, soft tissue measuring 0.2 x 0.1 x 0.1 cm submitted entirely in 1 cassette(s) /DOTTIE 09/30/2021 0150 Local . 02 Pathologist provided ICD-10: K21.9 . 02 CPT . 853255 Specimen Comment: A courtesy copy of this report has been sent to [phone] Performed at: 01 [facility] [address] [facility], [place], [place] [id number] MD Jon Carter MD Phone: [phone] Performed at: 02 [facility] [address] [place], [place] [id number] MD Bita Catherine MD Phone: [phone]
[2021-09-29 08:45] VITALS: BP 121/74; PULSE 87; RESP 16; TEMP 36.5; O2SAT 95; BMI 28.0
[2021-09-29] MEDS: SODIUM CHLORIDE 0.9% 1,000 ML 84 ML IV (09:00)
--- NOTE | 2021-09-29 09:15 | PM.HP.1 ---
History of Present Illness History of Present Illness Date Patient Seen: 09/29/21 Time Patient Seen: 09:15 Chief complaint: SDC Narrative: I reviewed my office note from August 26, 2021. No significant changes. He is tolerating Nexium. Patient History Medical History Hypertension Iron overload Migraine Family & Social History Social History: household members spouse Tobacco & Substance use: Smoking Status Never smoker alcohol intake never alcohol intake frequency 0-2 drinks per day Substance Use Type does not use Meds Home Medications and Allergies Home Medications Medication Instructions Recorded Confirmed Type cholecalciferol (vitamin D3) 50 2,000 iu PO DIRECTED #0 09/01/11 09/29/21 History mcg (2,000 unit) capsule (Vitamin D3) atorvastatin 20 mg tablet (Lipitor) 20 mg PO BEDTIME #0 tab 02/24/13 09/29/21 History clonazepam 0.5 mg tablet 0.5 mg PO BEDTIME PRN #0 tab 02/24/13 09/29/21 History sumatriptan succinate 100 mg 100 mg PO PRN PRN #0 02/24/13 09/29/21 History tablet (Imitrex) verapamil 80 mg tablet 80 mg PO BID #0 02/24/13 09/29/21 History acetaminophen-caffeine 500 mg-65 1 tab PO Q6H PRN 11/10/17 09/29/21 History mg tablet magnesium oxide 400 mg PO DAILY 01/06/19 09/29/21 History tamsulosin 0.4 mg capsule (Flomax) 0.4 mg PO BID 01/06/19 09/29/21 History sennosides 8.6 mg capsule (senna) 25.8 mg PO TID 07/17/19 09/29/21 History Allergies Allergy/AdvReac Type Severity Reaction Status Date / Time adhesive tape Allergy Intermediate Rash Verified 09/29/21 08:35 clindamycin Allergy Mild Hives Verified 09/29/21 08:35 ampicillin [AMPICILLIN] AdvReac Mild DIARRHEA Verified 09/29/21 08:35 chocolate flavor AdvReac Mild TRIGGER Verified 09/29/21 08:35 [CHOCOLATE FLAVOR] MIGRAINES HIGH OXALATE FOODS AdvReac Mild R/T KIDNEY Uncoded 09/29/21 08:35 STONES Review of Systems Review of Systems ROS: Yes All systems reviewed with the patient and are negative except as otherwise documented Exam Vital Signs (past 8 hours): - 09/29/21 08:45 Temperature 97.7 F Pulse Rate 87 Respiratory Rate 16 Blood Pressure 121/74 Pulse Oximetry 95 Oxygen Delivery Method Room Air Const General: cooperative and comfortable Orientation: alert HENMT Head: normocephalic Ears: external ears normal Nose: external nose normal Face and sinus: normal facial exam Mouth: oral mucosae normal Eyes General: appearance normal, both eyes and all related structures Neck Neck: normal visual inspection Chest Chest: normal inspection of the chest Resp Effort & Inspection: normal respiratory effort Cardio Rate: regular rate GI Inspection: normal to inspection Skin General: no rashes or lesions noted and No jaundice Neuro General: patient alert and moves all extremities Cognition: normal cognition Speech: speech normal Extrem General: no pedal edema Psych Appearance: grossly normal Assessment & Plan Assessment & Plan narrative: 75-year-old male with refractory gastroesophageal reflux symptoms. He has had some chest discomfort and dysphagia to both liquids and solids. EGD is pursued today. Time Spent With Patient Critical Care time: I spent a total of [] minutes of critical care time on this patient's care today; this time is exclusive of procedural time.
--- NOTE | 2021-09-29 09:17 | PM.PREOP ---
Pre-operative Note COVID-19 COVID-19 status: Negative Result date/Date tested (Pos, Neg/Pending): 09/26/21 Criteria for continued procedure: Possibility delay results in more complex future surgery or treatment Interval Note History & Physical reviewed/Exam performed by Physician: Yes Changes to H&P: Yes ASA Class (for procedural sedation): II
--- NOTE | 2021-09-29 09:30 | P.OP.EGD_ITS ---
Operative Date/Time/Diagnoses Date of procedure: 09/29/21 Time of procedure: 09:31 Pre-op diagnosis: Refractory GERD dysphagia to liquids and solids Post-op diagnosis: same Procedure & Clinicians Study performed: EGD with biopsies Same procedure as scheduled: Yes Indications: Refractory GERD dysphagia to liquids and solids Surgeon: Gaetano Rosenbaum Procedure Notes SCOAP/Timeout: Done Procedure in detail: After the risks and benefits were explained, written and verbal informed consent was obtained. The patient was brought into the procedure room and placed into the left lateral decubitus position. Please see nurse medical device sales representative notes for sedation details. The scope was introduced into the mouth through the bite block and advanced under direct visualization to the 2nd portion of the duodenum. The scope was slowly withdrawn carefully examining the mucosa for any defects or lesions. Retroflexed views were accomplished in the stomach. The stomach was decompressed, the scope was then removed from the patient who tolerated the procedure well. Sedation minutes: 11 Complications: none Impression: 1. Duodenum: This was normal from the bulb through to the 2nd portion. 2. Stomach: No ulcers no outlet obstruction. No mass lesions. Minimal gastropathy. Random antral biopsies were taken for exclusion of H pylori or other pathology. Retroflexed views of the LES demonstrated a slightly lax lower esophageal sphincter mechanism. There was some retained food debris noted in the proximal body and fundus region. 3. Esophagus: The squamocolumnar junction correlated with the top of the gastric folds. The GEJ was at about 41 cm from the incisors. There was some evidence of healing LA grade A erosive esophagitis. The remainder of the esophagus was unremarkable. Endoscopic diagnosis 1. Minimal gastropathy 2. Retained gastric food debris 3. Healing erosive esophagitis Post-procedure Plan for aftercare: 1. Await histopathology 2. Fiber based bowel regimen for soft regular stools. 3. Continue Nexium. 4. Should there be any persisting symptoms, gastric emptying study may be indicated to evaluate for underlying gastroparesis 5. Follow up GI clinic in 6-8 weeks Disposition: PACU
[2021-09-29 09:34] VITALS: BP 120/58; PULSE 73; RESP 14; TEMP 36.6; O2SAT 97
[2021-09-29 09:39] VITALS: BP 117/72; PULSE 70; RESP 11; O2SAT 97
[2021-09-29 09:44] VITALS: BP 113/72; PULSE 70; RESP 15; O2SAT 97
[2021-09-29 09:49] VITALS: BP 114/72; PULSE 72; RESP 14; O2SAT 98
[2021-09-29 09:56] VITALS: BP 113/72; PULSE 70; RESP 18; TEMP 37; O2SAT 96
== END 2021-09-29 10:10 | disposition home or self-care (01) ==
PROVIDERS: PCP Internal Medicine; Referring Provider Internal Medicine Gastroenterology; Visit Provider Internal Medicine Gastroenterology
PROC: 0DJ08ZZ Inspection of Upper Intestinal Tract, Via Natural or Artificial Opening Endoscopic (ICD-10-PCS; CPT 43235; principal; 2021-09-29 09:30)
DX: K21.00 Gastro-esophageal reflux disease with esophagitis, without bleeding (principal); K31.9 Disease of stomach and duodenum, unspecified
CPT/HCPCS: 43239; J2704

== ENCOUNTER → 2021-11-22 09:44 | Outpatient (CLI) | payer OTHER, SELFPAY ==
--- NOTE | 2021-11-22 09:49 | DI.RAD.S_ITS ---
PROCEDURE: XR SACRUM COCCYX MIN 2V INDICATIONS: Sacroiliitis TECHNIQUE: 3 views of the sacrum and coccyx acquired. COMPARISON: [facility], CR, XR SACRUM COCCYX MIN 2V, 01/06/2019, 11:51. FINDINGS: Bones: No fractures or dislocations. No suspicious bony lesions. There is postsurgical changes of the left sacroiliac joint with 3 traversing metallic structures. There is no significant sacroiliac joint sclerosis or erosions. No evidence of hardware complication. Neurostimulator is noted overlying the posterior aspect of the lower sacrum/upper coccyx. Postsurgical changes of prior lumbar fusion is grossly unchanged. Mild degenerative changes of the hips. Soft tissues: Visualized bowel gas pattern is normal. No suspicious soft tissue densities. IMPRESSION: Postsurgical changes as above without evidence of hardware complication or radiographic findings to suggest sacroiliitis. Dictated by: Manpreet Sparrow D.O. on 11/22/2021 at 9:30 Approved by: Manpreet Sparrow D.O. on 11/22/2021 at 9:33
== END ==
PROVIDERS: PCP Internal Medicine; Referring Provider Neurological Surgery; Visit Provider Neurological Surgery
DX: M46.1 Sacroiliitis, not elsewhere classified (principal)
CPT/HCPCS: 72220

== ENCOUNTER → 2021-12-16 10:33 | Outpatient (CLI) | payer OTHER, SELFPAY ==
[2021-12-16 11:12] LABS: COVID19 -Nasal RAPID Negative (Negative)
== END ==
PROVIDERS: PCP Internal Medicine; Referring Provider Orthopaedic Surgery Orthopaedic Surgery of the Spine; Visit Provider Orthopaedic Surgery Orthopaedic Surgery of the Spine
DX: Z20.822 Contact with and (suspected) exposure to COVID-19 (principal)
CPT/HCPCS: 87635; C9803

== ENCOUNTER 2021-12-17 06:16 | Day surgery (SDC) | payer OTHER, SELFPAY ==
[2021-12-10 08:34] VITALS: BMI 28.4
[2021-12-17] VITALS (17 sets, daily range): BP systolic 71–115; BP diastolic 31–73; PULSE 72–92; RESP 14–20; TEMP 35.8–36.5; O2SAT 10–98; BMI 28.4
--- NOTE | 2021-12-17 | DI.RAD.S_ITS ---
PROCEDURE: XR THORACIC SPINE 1V INDICATIONS: SPINAL CORD STIMULATOR REMOVAL TECHNIQUE: One-view of the thoracic spine were acquired. COMPARISON: None. FINDINGS: Bones: No fractures or dislocations. No suspicious bony lesions. Soft tissues: No paravertebral stripe thickening. No retained neurostimulator lead elements. IMPRESSION: No retained neurostimulator lead identified by plain film radiograph. Dictated by: Kaylen Belle MD, PhD on 12/17/2021 at 12:06 Approved by: Kaylen Belle MD, PhD on 12/17/2021 at 12:06
[2021-12-17] MEDS: ACETAMINOPHEN 325 MG TABLET 975 MG PO (07:22)
[2021-12-17] MEDS: LACTATED RINGERS 1,000 ML 42 ML IV ×2 (07:24→09:03)
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
[2021-12-17] MEDS: CEFAZOLIN 2 GM/20 ML SYRINGE IV (08:19)
--- NOTE | 2021-12-17 08:27 | SUR.OPER ---
Prone on spine table, head in foam head support, padded chest and pelvic supports, gel pad at knees, lower legs supported by pillows; nipples, genitalia and toes free of pressure, arms secured on foam padded arm boards at <90 degrees abduction. Tape over blanket at thigh secured to table.
[2021-12-17] MEDS: BUPIVACAINE 0.25% (PF) 60 ML, EPINEPHrine 0.3 MG INJ (09:00)
--- NOTE | 2021-12-17 09:10 | PM.OP.1 ---
Operative Date/Time/Diagnoses Date of procedure: 12/17/21 Time of procedure: 07:45 Pre-op diagnosis: 1. Failed spinal cord stimulator 2. Chronic back pain Post-op diagnosis: same Procedure & Clinicians Procedure: 1. Removal of spinal neurostimulator electrode paddle placed via laminectomy at T7 level using fluoroscopy 2. Removal of implanted spinal neurostimulator pulse generator Same procedure as scheduled: Yes Indications: Mr. Gomez is here for scheduled spinal cord stimulator removal. He had SCS implantation in 2019. He has worsening pain with no relief. After discussing risks and benefits of surgery, patient elected to proceed with SCS removal along with paddle leads. Surgeon: Corrie Goodwin Analog Device Designer: Lois Michele Click Yes if Unassisted: No Anesthesia Type: General Operative Notes Closure Type: primary Specimen(s): none sent Estimated Blood Loss (mL): 5 Blood products transfused: none Procedure in detail: Patient was seen in the preoperative area. Risks and benefits of the surgery was discussed with the patient. Informed consent was obtained from the patient and placed in the chart. Surgical site was marked. Patient was taken to the operative room. General anesthesia was administered. Prophylactic antibiotic was given to the patient less than 30 min before the incision was made. Patient was placed into a prone position on the Cheikh table. Patient's back was then prepped and draped in the sterile fashion. Time-out was performed at this time. Incision was first made over his left glute over his pulse generator. Bovie was used to dissect down to the device. The device was removed from the wound along with the lead attached and set aside. Second incision was made over his thoracic region over T7 level. A T7 laminectomy was performed to expose the paddle lead using curette and rongeur. The wire along with the paddle lead was removed from the wound. The wire was cut caudal to the paddle lead. The remaining wire was removed by pulling on the pulse generator. C-arm imaging was done over the thoracic region to confirm no other implant was remaining. This was confirmed to be the case. The wound was then irrigated with sterile normal saline. The deep fascia was closed with 1-0 Vicryl. The subcutaneous tissue was closed with 2-0 Vicryl. The skin was closed with skin mirlande. Patient tolerated the procedure well. There were no complications. Patient was transferred to recovery room in stable condition. Complications: none Post-operative Condition: stable Disposition: PACU Plan for aftercare: Discharge to home
--- NOTE | 2021-12-17 09:50 | SUR.PHASEI ---
Verbal order from Dr Landin entered with Dr Landin at bedside for MAP less than 60
[2021-12-17] MEDS: PHENYLEPHRINE 10,000 MCG/ML VIAL 100 MCG IV ×2 (09:51→09:54)
[2021-12-17] MEDS: OXYCODONE IR 5 MG TABLET PO ×2 (10:20→11:33)
[2021-12-17] MEDS: LACTATED RINGERS 1,000 ML 120 ML IV (10:34)
--- NOTE | 2021-12-17 11:48 | SUR.PHASEII ---
1143 Patient medicated per request for pain, states that he has multiple strengths of medication that he uses at home for his chronic pain. Declined hydroxyzine PO. Patient calm, joking, transferred slowly, but independently. No questions/concerns
== END 2021-12-17 11:43 | disposition home or self-care (01) ==
PROVIDERS: PCP Internal Medicine; Referring Provider Orthopaedic Surgery Orthopaedic Surgery of the Spine; Visit Provider Orthopaedic Surgery Orthopaedic Surgery of the Spine
PROC: (CPT 63685; principal; 2021-12-17 07:45)
DX: T85.192A Other mechanical complication of implanted electronic neurostimulator of spinal cord electrode (lead), initial encounter (principal)
CPT/HCPCS: 63662; 63688; 72020; 76000; J0171; J0330; J0690; J1100; J2250; J2405; J2704; J3010

== ENCOUNTER → 2022-01-24 10:33 | Outpatient (CLI) | payer OTHER, SELFPAY ==
--- NOTE | 2022-01-24 10:39 | DI.RAD.S_ITS ---
PROCEDURE: XR CERVICAL SPINE 2V OR 3V INDICATIONS: Cervicalgia TECHNIQUE: Lateral views of the cervical spine were performed in neutral, flexion, and extended position. COMPARISON: [facility], , XR CERVICAL SPINE 4V OR 5V, 04/06/2018, 14:37. FINDINGS: Bones: No fractures or dislocations to the C7 level. Vertebral body heights are maintained. There is complete intervertebral disc space loss noted C4-C5 and C5-C6 with additional levels of at least mild intervertebral disc space loss. There is mild anterolisthesis of C4 on C5 and C5 on C6 without significant change with flexion or extension. Postsurgical changes of the mandible and teeth. Soft tissues: No prevertebral soft tissue swelling. IMPRESSION: Multilevel cervical spondylopathy worse at C4-C5 and C5-C6 where there is complete intervertebral disc space loss and mild anterolisthesis which does not demonstrate significant changes on flexion or extension. Dictated by: Manpreet Sparrow D.O. on 01/24/2022 at 15:16 Approved by: Manpreet Sparrow D.O. on 01/24/2022 at 15:18
== END ==
PROVIDERS: PCP Internal Medicine; Referring Provider Psychiatry & Neurology Neurology; Visit Provider Psychiatry & Neurology Neurology
DX: M48.8X2 Other specified spondylopathies, cervical region (principal); M54.2 Cervicalgia; M54.81 Occipital neuralgia; M79.18 Myalgia, other site
CPT/HCPCS: 72040

== ENCOUNTER → 2022-03-17 12:16 | Outpatient (CLI) | payer OTHER, SELFPAY ==
--- NOTE | 2022-03-17 12:19 | DI.RAD.S_ITS ---
PROCEDURE: XR PELVIS 1-2V INDICATIONS: Other spondylosis with radiculopathy, lumbar TECHNIQUE: Single AP view of the pelvis acquired. COMPARISON: [facility], CT, CT PEL WO CON, 01/22/2021, 12:36. [facility], CR, XR SACRUM COCCYX MIN 2V, 11/22/2021, 9:43. FINDINGS: Bones: Postsurgical changes are again seen from left sacroiliac joint arthrodesis as well as posterior spinal fixation. Mild lucency is seen surrounding the right L4 pedicle screw that could indicate loosening. Hardware otherwise appears to be intact. A portion of the superior left sacroiliac joint is not well visualized, which may be related to partial osseous bridging versus obliquity. The more inferior portion of the sacroiliac joint is intact. Soft tissues: Visualized bowel gas pattern is normal. No suspicious soft tissue calcifications. IMPRESSION: 1. Postsurgical changes from redemonstrated from left sacroiliac arthrodesis. 2. Spinal fixation hardware is again seen. Mild lucency surrounding the right L4 pedicle screw may indicate loosening. Dictated by: Winston Chen M.D. on 03/17/2022 at 17:14 Approved by: Winston Chen M.D. on 03/17/2022 at 17:17
--- NOTE | 2022-03-17 12:19 | DI.MRI.S_ITS ---
PROCEDURE: MR LUMBAR SPINE WO CON INDICATIONS: Other spondylosis with radiculopathy, lumbar TECHNIQUE: Noncontrast sagittal T1 spin echo and T2 fast echo, sagittal STIR, and T2 fast spin echo through the lumbar spine. In cases with scoliosis, additional coronal T2 fast spin echo may be performed. COMPARISON: [facility], MR, L-SPINE W&WO CONTRAST, 05/22/2015, 9:16. [facility], MR, L-SPINE WITHOUT CONTRAST, 10/05/2012, 12:19. [facility], CT, CT LUMBAR SPINE WO CON, 09/18/2020, 11:39. [facility], MR, MR LUMBAR SPINE WO CON, 01/12/2018, 15:05. [facility], CR, XR SACRUM COCCYX MIN 2V, 11/22/2021, 9:43. FINDINGS: Image quality: There is artifact associated with the metallic hardware. Alignment and Curvature: Mild levoconvex scoliotic curvature is noted. No focal AP alignment abnormality is seen. Bone Marrow: Marrow is of normal overall signal. No acute vertebral body compression fractures. Spinal Cord: Conus medullaris terminates at the L1 level. Visualized cord demonstrates normal signal and size. Paraspinous Soft Tissues: Posterior to the L1-L2 level, there is a focal fluid collection seen without significant surrounding edema that measures 3.1 by 1.9 by 2.4 cm. Extensive postoperative change can be seen, with pedicle screws through seen L1 through S1. Disc spacers are seen at L2-L3, L3-L4, L4-L5, and L5-S1. There has been removal of portions of the posterior elements. T12-L1: No significant abnormality is seen. L1-L2: At least moderate loss of disc height and disc signal can be seen. Mild generalized disc bulge is seen. Moderate bilateral neural foraminal narrowing is seen. No central canal narrowing is seen. The degrees of neural foraminal narrowing and central canal narrowing are improved compared to the prior MRI. L2-L3: Moderate loss of disc height is seen. Moderate disc bulge is seen. There is a superimposed central disc protrusion. At least moderate facet hypertrophy is seen. There is at least moderate bilateral neural foraminal narrowing seen, left worse than right. Moderate central canal narrowing is seen. When comparison is made with the prior images, these findings are similar. L3-L4: Moderate disc bulge is seen, with a central/left disc protrusion. Moderate facet joint hypertrophy is seen. There is at least moderate left-sided and moderate right-sided neural foraminal narrowing. Moderate central canal narrowing is seen. When compared to the 2018 MRI, these findings are similar. L4-L5: Moderate generalized disc bulge is seen. Moderate facet joint hypertrophy is seen. At least moderate bilateral neural foraminal narrowing can be seen. Mild central canal narrowing is seen. When comparison is made with the prior images, these findings are similar. L5-S1: [id number] disc bulge is seen, which is eccentric to the left. Mild to moderate facet hypertrophy can be seen. There is [id number] right-sided and at least moderate left-sided neural foraminal narrowing. Moderate central canal narrowing is seen, which is partially caused by epidural lipomatosis. When comparison is made with the prior images, these findings are similar. IMPRESSION: Extensive postoperative hardware is seen. There is a fluid collection seen posterior to the L1-L2 level, which is attributed to a benign postoperative seroma. There is improvement in the degrees of narrowing at L1-L2 and L2-L3 compared to the prior MRI. Dictated by: Live Mackenzie M.D. on 03/17/2022 at 13:25 Approved by: Live Mackenzie M.D. on 03/17/2022 at 13:34
--- NOTE | 2022-03-17 12:19 | DI.RAD.S_ITS ---
PROCEDURE: XR SACRUM COCCYX MIN 2V INDICATIONS: Other spondylosis with radiculopathy, lumbar TECHNIQUE: 3 views of the sacrum and coccyx acquired. COMPARISON: [facility], , XR SACRUM COCCYX MIN 2V, 11/22/2021, 9:43. FINDINGS: Bones: Postsurgical changes from left sacroiliac arthrodesis. Postsurgical changes also seen in the included lower lumbar spine. The superior aspect of the left sacroiliac joint appears less prominent. Persistent lucency is seen at the inferior aspect of the left sacroiliac joint. Mild lucency surrounding the right L4 pedicle screw could indicate loosening. No acute fractures or dislocations. No suspicious bony lesions. Soft tissues: Visualized bowel gas pattern is normal. No suspicious soft tissue densities. Left-sided neurostimulator device is no longer present. IMPRESSION: Stable postsurgical changes from left sacroiliac joint arthrodesis. Dictated by: Winston Chen M.D. on 03/17/2022 at 17:17 Approved by: Winston Chen M.D. on 03/17/2022 at 17:19
== END ==
PROVIDERS: PCP Internal Medicine; Referring Provider Neurological Surgery; Visit Provider Neurological Surgery
DX: M47.27 Other spondylosis with radiculopathy, lumbosacral region (principal); M47.26 Other spondylosis with radiculopathy, lumbar region; M53.88 Other specified dorsopathies, sacral and sacrococcygeal region; Z98.1 Arthrodesis status
CPT/HCPCS: 72148; 72170; 72220

== ENCOUNTER → 2023-07-05 12:37 | Outpatient (CLI) | payer OTHER, SELFPAY ==
--- NOTE | 2023-07-05 13:39 | DI.MRI.S_ITS ---
PROCEDURE: MR WRIST LT WO CON INDICATIONS: Primary osteoarthritis, left wrist TECHNIQUE: Noncontrast coronal proton density fast spin echo and T2 fast spin echo with fat saturation; coronal 3-D gradient echo, axial T1 spin echo and T2 fast spin echo with fat saturation, sagittal T1 spin echo through the wrist. COMPARISON: None. FINDINGS: Image quality: Excellent. Bones and cartilage: Susceptibility artifacts are noted over dorsal aspect of 2nd and 3rd TMT joints suggest clinical correlation. The carpal bones are normally aligned. Moderate osteoarthritic changes throughout left wrist joints are seen more notably involving scaphoid trapezial joint and 1st CMC joint. Nonspecific subcortical cystic changes are noted involving volar aspect of distal radius, radial aspect of lunate and proximal capitate. Marrow edema is seen within pisiform without discrete fracture line. No other area of abnormal marrow signal. No evidence of avascular necrosis. Carpal ligaments: The scapholunate and lunotriquetral ligaments appear intact. In the absence of intra-articular contrast, the extrinsic carpal ligaments are not well identified. On sagittal images, the pisohamate ligament appears intact. Triangular fibrocartilage complex: Signal abnormality involving triangular fibrocartilage near its ulnar insertion is seen. The adjacent meniscal homolog appears normal in the absence of intra-articular contrast. The extensor carpi ulnaris tendon is normal in location and morphology. Tendons and soft tissues: The carpal tunnel structures appear normal, including the median nerve. The ulnar nerve appears normal within Guyon's canal. All six extensor tendon compartments demonstrate normal morphology, without pathologic tendon sheath fluid. No soft tissue ganglion cysts. IMPRESSION: 1. Possible toe surgical changes over dorsal aspect of 2nd and 3rd TMT joint suggest clinical correlation. Osteoarthritic changes throughout wrist joints with nonspecific subcortical cystic changes in distal radius and multiple carpal bones as above. No fracture or dislocation. No evidence of avascular necrosis. 2. Scapholunate and lunotriquetral ligaments are intact. 3. Finding is suggestive of triangular fibrocartilage tear near its ulnar insertion. 4. Extensor and flexor tendons of wrist are grossly intact. Dictated by: Ant Taylor M.D. on 07/05/2023 at 15:50 Approved by: Ant Taylor M.D. on 07/05/2023 at 15:54
== END ==
LOC: MRI 12:38
PROVIDERS: PCP Internal Medicine; Referring Provider Orthopaedic Surgery; Visit Provider Orthopaedic Surgery
DX: M19.032 Primary osteoarthritis, left wrist (principal); Z98.890 Other specified postprocedural states
CPT/HCPCS: 73221

== ENCOUNTER 2024-06-12 10:22 | Emergency (ER) | payer OTHER, SELFPAY ==
[2024-06-12 10:34] VITALS: BP 148/80; PULSE 87; RESP 16; TEMP 36.5; O2SAT 97; BMI 27.8
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
--- NOTE | 2024-06-12 11:30 | DI.RAD.S_ITS ---
PROCEDURE: XR HIP W PEL IF DONE LT 2V INDICATIONS: Left hip, buttock pain s/p fall 3 wks ago. Hx spine surgery TECHNIQUE: AP pelvis with lateral view(s) of the left hip(s). COMPARISON: [facility], , XR HIP W PEL IF DONE LOKESH 3TO4V, 01/22/2021, 12:22. FINDINGS: Bones: Postsurgical changes are seen in included lower lumbar spine. There is also fusion of left SI joint. There is cortical irregularity involving left superior pubic ramus and surrounding increased sclerosis concerning for subacute nondisplaced fracture in this area. No left femoral head or neck fracture. Bilateral hip joint osteoarthritic changes are seen. No evidence of avascular necrosis of femoral head. Soft tissues: The visualized bowel gas pattern is normal. No suspicious soft tissue calcifications. IMPRESSION: Finding is concerning for nondisplaced fracture involving medial aspect of left superior pubic ramus. No other fracture or dislocation. Bilateral hip joint osteoarthritis. No evidence of avascular necrosis of femoral head. Dictated by: Ant Taylor M.D. on 06/12/2024 at 12:10 Approved by: Ant Taylor M.D. on 06/12/2024 at 12:12
--- NOTE | 2024-06-12 11:30 | DI.RAD.S_ITS ---
PROCEDURE: XR LUMBAR SPINE 2-3V INDICATIONS: left low back, buttock pain s/p fall, Hx spine surgery TECHNIQUE: 3 views of the lumbar spine were acquired. COMPARISON: [facility], [place], XR LUMBAR SPINE MIN 4V, 01/12/2018, 15:26. FINDINGS: Bones: Patient is status post extensive fusion of lumbar spine from L1 through S1 levels with surgical hardware in place. There is no gross hardware loosening or failure. Alignment of lumbar spine is anatomic. No acute vertebral body compression fractures. No suspicious bony lesions. Soft tissues: Overlying bowel gas pattern is normal. No suspicious soft tissue calcifications. IMPRESSION: Extensive fusion of lumbar spine from L1 through S1 levels with postsurgical changes. No gross hardware loosening or failure. No acute vertebral body compression fracture. Dictated by: Ant Taylor M.D. on 06/12/2024 at 12:08 Approved by: Ant Taylor M.D. on 06/12/2024 at 12:10
[2024-06-12 11:54] LABS: Bacteria Urine None Seen; Culture Indicated Urine Cult Not Indicated; RBC Urine 10-30/HPF (0-5/HPF); Squamous Epithelial Cell Urine 0-1 /HPF (0-5/HPF); Urine Volume 10mL (spun); WBC Urine 1-5/HPF (0-5/HPF)
[2024-06-12 13:07] VITALS: BP 140/80; PULSE 86; RESP 16; TEMP 36.9; O2SAT 98
== END 2024-06-12 13:07 | disposition home or self-care (01) ==
PROVIDERS: Emergency Provider Physician Assistant Medical; PCP Internal Medicine
DX: S32.512A Fracture of superior rim of left pubis, initial encounter for closed fracture (principal); W18.30XA Fall on same level, unspecified, initial encounter
CPT/HCPCS: 72100; 73502; 81003; 81015; 99283

== ENCOUNTER → 2025-01-25 08:47 | Outpatient (CLI) | payer OTHER, SELFPAY ==
--- NOTE | 2025-01-25 08:49 | DI.MRI.S_ITS ---
PROCEDURE: MR HEAD/BRAIN WO/W CON INDICATIONS: chronic migraine TECHNIQUE: Noncontrast axial T1 spin echo, axial T2 fast spin echo, sagittal and axial FLAIR, axial gradient echo, axial diffusion and ADC through the brain. After the administration of contrast, axial and coronal and sagittal T1 spin echo with fat saturation through the brain, coronal thin-slice T1 spin echo with fat saturation through the cavernous sinuses. COMPARISON: [facility], CT, HEAD WITHOUT CONTRAST, 01/21/2016, 13:14. [facility], MR, MR HEAD/BRAIN WO CON, 12/24/2017, 10:43. FINDINGS: Image quality: Excellent. Trigeminal nerves: In this patient with this given history, scrutiny is given to the trigeminal nerves. The trigeminal nerves demonstrate a normal appearance, without masses or abnormal enhancement seen along their courses, including within the Meckel's caves. CSF spaces: Ventricles are normal in size and shape. Basal cisterns are patent. No extra-axial fluid collections. Brain: No acute intracranial bleeds or mass effects. Adams-white matter interface is intact. No abnormal intracranial enhancement. Diffusion weighted images demonstrate no acute ischemic insults. Brainstem appears normal. Normal intravascular flow voids are present. Note is made of age-appropriate brain parenchymal volume loss and chronic small vessel ischemic changes. Skull and face: Calvarial marrow signal is normal. Orbits appear normal. Sinuses: Sinuses and mastoids appear clear. IMPRESSION: No imaging explanation is found for this patient's presenting symptoms. No masses or abnormal enhancement can be seen. No significant abnormality of the trigeminal nerves can be seen. Dictated by: Live Mackenzie M.D. on 01/25/2025 at 18:06 Approved by: Live Mackenzie M.D. on 01/25/2025 at 18:08
== END ==
LOC: MRI 08:48
PROVIDERS: PCP Internal Medicine; Referring Provider Psychiatry & Neurology Neurology; Visit Provider Psychiatry & Neurology Neurology
DX: G43.719 Chronic migraine without aura, intractable, without status migrainosus (principal); G43.709 Chronic migraine without aura, not intractable, without status migrainosus
CPT/HCPCS: 70553; A9579